=== PATIENT | female | born 1950 | race Caucasian/White ===

== ENCOUNTER 2016-02-22 10:11 | Emergency (ER) | payer MEDICARE, OTHER ==
[2016-02-22 11:18] LABS: Hematocrit 45.3 % (37.0-47.0); Hemoglobin 16.3 gm/dL (12.5-16.0); Mean Cell Volume 85.6 fl (78-100); Mean Corpuscular Hemoglobin 30.8 pg (27-31); Mean Platelet Volume 9.2 fl (6.0-9.5); Neutrophil # 5.3 K/mm3 (1.3-6.0); Neutrophil % 70.4 % (42-75.0); Platelet Count 235 K/mm3 (150-450); Red Blood Count 5.29 M/mm3 (4.2-5.4); Red Cell Distribution Width 11.9 % (11.5-14.0); White Blood Count 7.6 K/mm3 (4.0-10.5)
[2016-02-22] MEDS ORDERED: MECLIZINE HCL 25 MG TABLET PO ONE (11:24)
[2016-02-22] MEDS ORDERED: NORMAL SALINE 1,000 ML IV ONE (11:24)
[2016-02-22 11:32] LABS: Albumin * 3.9 gm/dl (3.4-5.0); Anion Gap 10.8 mmol/L (6.8-13.8); Bilirubin, Total 1.1 mg/dL (0.0-1.1); Calcium * 10.2 mg/dL (7.9-10.9); Carbon Dioxide 26.7 mmol/L (24-32.6); Potassium 3.5 mmol/L (3.4-4.6); Total Protein 7.5 gm/dL (6.2-8.2)
[2016-02-22] MEDS ORDERED: DIAZEPAM 5 MG/ML SYRG IV ONE (11:40)
[2016-02-22] MEDS ORDERED: ONDANSETRON HCL/PF 2 MG/ML VIAL IV ONE (11:41)
[2016-02-22] MEDS ORDERED: MECLIZINE HCL 25 MG TABLET ONE (12:12)
[2016-02-22] MEDS ORDERED: ONDANSETRON HCL/PF 2 MG/ML VIAL ONE (12:12)
[2016-02-22] MEDS ORDERED: DIAZEPAM 5 MG/ML SYRG ONE (12:12)
[2016-02-22 12:45] LABS: Urine Bilirubin Negative (NEGATIVE); Urine Blood Negative /ul (NEGATIVE); Urine Ketone Negative (NEGATIVE); Urine Nitrite Negative (NEGATIVE); Urine Protein Negative (NEGATIVE); Urine Specific Gravity 1.025 SP.GR. (1.005-1.010); Urine Urobilinogen Normal (NORMAL)
[2016-02-22 12:54] LABS: Urine Appearance Clear; Urine Bacteria 1+; Urine Color Yellow; Urine RBC 0-5 /hpf (0-5)
[2016-02-22] MEDS ORDERED: ACETAMINOPHEN 500 MG TABLET PO ONE (13:07)
[2016-02-22 13:17] VITALS: BP 153/79
[2016-02-22] MEDS ORDERED: CIPROFLOXACIN HCL 250 MG TABLET PO ONE (13:51)
--- NOTE | 2016-02-22 14:00 | ERNOTE ---
Dizziness ER Record Date of Service: 02/22/16 Presenting Symptoms: dizziness Time Seen by Provider: 02/22/16 11:29 Source: patient, RN notes reviewed Immunizations: IMMUNIZATION HX Immunizations Up to Date Yes Allergies/Adverse Reactions: Allergies Allergy/AdvReac Type Severity Reaction Status Date / Time No Known Allergies Allergy Verified 02/22/16 11:02 Home Medications: HOME MEDICATIONS Aspirin [Aspir 81] 81 mg PO DAILY 12/22/11 [Last Taken Unknown] Losartan/Hydrochlorothiazide [Losartan-Hctz 100-25 mg Tab] 1 each PO DAILY 12/21 [Last Taken Unknown] Acetaminophen [Tylenol] 650 mg PO QID PRN #0 tablet 12/23/11 [Last Taken Unknown ] Nitroglycerin [Nitrostat] 0 tab SL PRN PRN #0 btl 12/23/11 [Last Taken Unknown] Atorvastatin Calcium [Lipitor] 20 mg PO DAILY 02/22/16 [Last Taken Unknown] Meclizine HCl 25 mg PO TID PRN #14 tab.chew 02/22/16 [Last Taken Unknown] - History of Present Illness Narrative: Patient presents with dizziness sudden onset started yesterday. Worse with any type of movements. She is denying any headache today she did have a slight headache yesterday. Denies any abdominal pain chest pain. Is nauseous but no vomiting. Denies any weakness on one side or the other side. Denies any diarrhea. No fever Date (Duration): 02/21/16 Timing and Duration: sudden onset Noted on awakening:: No Severity: max: mild Severity: currently: mild Associated Symptoms: Absent: hearing loss, ringing/roaring in ear, ear pain, nausea, vomiting, headache, weakness, numbness, sweating, light headedness Sense of movement: Present: spinning Modifying Factors - (Worsens): Reports: changing position, movement of head, standing position Review of Systems - Review of Systems Constitutional: Absent: fever, weakness EYE: Absent: eye discharge Neurological: Present: dizziness/light-headedness. Absent: headache, seizure, weakness, numbness, tingling All Other Systems: All systems neg except as marked - Social History Alcohol Use: none Drug Use: none Physical Exam - Physical Exam General Appearance: Present: wd/wn, alert, no apparent distress Eye Exam: PERRL: bilateral, EOMI: bilateral Ears, Nose, Throat: Present: normal ENT inspection, hearing grossly normal, normal pharynx Neck: Present: normal inspection, nontender Respiratory: Present: no respiratory distress, normal breath sounds, chest nontender, lungs clear Cardiovascular/Chest: Present: regular rate, rhythm, no murmur, normal peripheral pulses Gastrointestinal/Abdominal: Present: normal bowel sounds, nontender, nondistended, soft, no organomegaly Neurological Exam: Present: alert, oriented, normal mood/affect, no motor/ sensory deficits, machine printer II-XII nml as tested. Absent: facial droop, motor weakness, disoriented to person, disoriented to time, disoriented to place Skin Exam: Present: normal color, warm/dry Lymphatic Exam: Present: no adenopathy ED Progress - Results and Orders Patient's Lab Results:: I have reviewed the patient's lab results. - Vital Signs Patient's Vital Signs:: I have reviewed the patient's vital signs. Vital Signs: Vital Signs 02/22/16 02/22/16 02/22/16 10:59 11:27 11:57 Temperature 35.1 C L Pulse Rate 70 56 L 54 L Respiratory 12 13 Rate Blood Pressure 144/88 160/75 148/74 O2 Sat by Pulse 95 93 Oximetry 02/22/16 02/22/16 02/22/16 11:58 12:07 12:47 Temperature Pulse Rate 55 L 56 L 55 L Respiratory 15 19 16 Rate Blood Pressure 148/74 151/82 162/81 O2 Sat by Pulse 92 92 92 Oximetry 02/22/16 13:16 Temperature Pulse Rate 56 L Respiratory 13 Rate Blood Pressure 153/79 O2 Sat by Pulse 92 Oximetry - EKG EKG: NSR, nonspecific ST T wave changes EKG read: Interp. by me - Progress/Reassessment Chief Complaint: Dizziness Progress:: Improved - Transfer of Care Expected Disposition: Discharge Additional Notes: Patient is feeling better desires to go home we'll put her on meclizine. She will take it easy when ambulating. Push plenty of fluids. Return back to the ER with any change or worsening symptoms. Follow up with her family doctor in 2-3 days. Warning signs and symptoms have been reviewed with the patient and her and return back to the ER with good understanding. Departure Clinical Impression: Vertigo - Departure Disposition: Home Follow Up Needed Instructions: Vertigo, [id number], Benign Positional Vertigo, Labyrinthitis Prescriptions: Meclizine HCl 25 mg PO TID PRN #14 tab.chew PRN Reason: Vertigo
[2016-02-22] MEDS ORDERED: CIPROFLOXACIN HCL 250 MG TABLET ONE (14:05)
== END 2016-02-22 14:18 | disposition home or self-care (01) ==
LOC: ER 10:11
DX: R42 Dizziness and giddiness (principal)

== ENCOUNTER 2016-06-14 06:52 | Day surgery (SDC) | payer MEDICARE, OTHER ==
[~2016-06-14 06:52] MED LIST: RINGERS SOLUTION,LACTATED 1,000 ML IV PRN
--- OUTSIDE RECORDS SUMMARY | 2016-06-14 06:56 | XMS REPORT | Continuity of Care Document ---
:1950 Author Organization [facility] ([facility]) [place] [address] Phone [phone] Care Team Providers Name Role Phone Provider, No-Primary Care Primary Care Provider Unavailable Source Comments This disclosure is being made pursuant to the Care Everywhere program, applicable federal and state laws, and may not contain all informaitonavailable regarding this patient.[facility] ([facility]) Active Allergies and Adverse Reactions No Known Allergies Current Medications Prescription Sig. Disp. Refills Start Date End Date Status aspirin, buffered Take 81 mg by 01/25/2012 Active 81 mg tablet mouth daily atorvastatin 20 mg Take 1 tablet 90 tablet 2 09/02/2015 Active tablet (20 mg total) by mouth every evening. LOSARTAN-HYDROCHLOR TAKE 1 TABLET 90 tablet 1 05/31/2016 Active OTHIAZIDE 100-25 mg EVERY DAY per tablet losartan-hydrochlor Take 1 tablet 90 tablet 2 09/02/2015 05/31/2016 Discontinued othiazide 100-25 mg by mouth per tablet daily. Active Problems Problem Noted Date Coronary artery disease Overview: Formatting of this note may be different from the original. CARDIOVASCULAR PROCEDURES ECHO/MUGA: Echo (Left ventricular systolic function is normal. The left ventricular wall motion is normal. There is moderate mitral regurgitation. ) - 12/18/2009 Echo:Echo (Left ventricular systolic function is normal. The left ventricular wall motion is normal. There is moderate mitral regurgitation. ) - 01/12/2011 Echo:Echo (Left ventricular systolic function is normal. The left ventricular wall motion is normal. There is mild to moderate mitral regurgitation. ) - 08/07/2013 STRESS TESTS: MPI (EF.60, Normal LV size, systolic function, and wall motion--EF 60%. There is a moderate size and severity fixed posterior-lateral defect that likely represents a prior OK. No ischemia.) - 12/18/2009 MPI (Normal EF, No ischemia) - 12/23/2011 VASCULAR: Carotid Duplex (Antegrade flow is noted in the right vertebral artery The Doppler flow velocities within the right internal carotid artery are within normal limits, less than 50% stenosis. The Doppler flow velocities within the left internal carotid artery are within normal limits, less than 50% stenosis. Antegrade flow is noted in the left vertebral artery ) - 12/18/2009 Old myocardial infarction Hypertension Hyperlipemia Overview: Formatting of this note may be different from the original. LIPID HISTORY: Results Date Total Cholesterol Triglycerides HDL LDL 02/21/2013 160 221 38.00 78.00 08/15/2012 188 173 43.00 110.00 07/20/2010 160 103 54.00 85.00 09/12/2009 217 140 51.00 138.00 Palpitation Mitral regurgitation Overview: Most Recent Encounters Date Type Specialty Providers Description 05/31/2016 Refill Cardiac Rehabilitation Yvette An MD Dx: HTN ( hypertension) (Primary Dx) Social History Tobacco Use Types Packs/Day Years Used Date Never Smoker Last Filed Vital Signs Vital Sign Reading Time Taken Blood Pressure 124/80 09/16/2015 2:13 PM CDT Pulse 78 09/16/2015 2:13 PM CDT Temperature - - Respiratory Rate - - Height 1.651 m (5' 5") 09/16/2015 2:13 PM CDT Weight 86.183 kg (190 lb) 09/16/2015 2:13 PM CDT Body Mass Index 31.62 09/16/2015 2:13 PM CDT Oxygen Saturation - - Plan of Care Date Type Specialty Providers Description 09/23/2016 Appointment Heart and Vascular Yvette An MD Chief Comp: Patient [address] [place] [address] Visit [phone] (Fax) Health Maintenance Due Date Last Done Comments HCV Screening 1950 Hepatitis B Vaccine (1 of 3 - Primary Series) 1950 Tdap Vaccine 1961 Lipid Disorder Screening 1968 Td Vaccine 1968 Cervical Cancer Screening 1980 Mammogram 1990 Colonoscopy 07/29/2000 Zoster Vaccine 2010 Osteoporosis Screening (DXA Bone Density) 07/31/2015 Pneumococcal Vaccine (1 of 2 - PCV13) 07/31/2015 Influenza Vaccine: Seasonal (Season Ended) 2016 Results from Last 3 Months Not on file
[2016-06-14] MEDS ORDERED: RINGERS SOLUTION,LACTATED 1,000 ML IV ONE (07:15)
[2016-06-14] MEDS ORDERED: RINGERS SOLUTION,LACTATED 1,000 ML IV PRN (09:37)
[2016-06-14 10:33] VITALS: BP 127/62
--- NOTE | 2016-06-14 17:59 | OR ---
Operative Report - Dictated Report Narrative: OPERATIVE REPORT DATE OF OPERATION: 06/14/2016 PREOPERATIVE DIAGNOSIS: No recent dedicated colon studies. Family history of colon cancer POSTOPERATIVE DIAGNOSIS: Diverticulosis, otherwise normal colonoscopy OPERATION: Colonoscopy SURGEON: Sherry Thompson MD ANESTHESIA: RASHEEDA Edge CRNA INDICATIONS FOR PROCEDURE: The patient is a 65-year-old female referred by Dr. Ramirez. The patient had a normal colonoscopy in 2004. Her mother had colon cancer in her late 50s. The patient is currently asymptomatic FINDINGS: Capacious redundant colon with significant diverticulosis otherwise normal exam to the cecum. NARRATIVE OF PROCEDURE: The patient was identified in the holding area, and prior to the administration of anesthetic, a multidisciplinary timeout was observed. With the patient in the left lateral position and after the administration of intravenous sedation, the perineum was inspected. There was no evidence of pilonidal disease or skin breakdown. The external appearance of the anus was normal. Sphincter tone was good. The flexible fiberoptic colonoscope was inserted into the rectum which was insufflated with air. The rectal mucosa and submucosal vascular pattern appeared normal, the prep was seen to be complete. The scope was advanced through the sigmoid colon, which contained numerous large noninflamed diverticular openings some of which were impacted with stool. The scope was advanced up the descending colon, and around the splenic flexure where the triangular haustral architecture of the transverse colon was seen. The scope was advanced across the transverse colon, around the hepatic flexure to the cecum, where the confluence of tenia and the ileocecal valve were identified. The mucosa at this level appeared normal. The scope was then slowly withdrawn in a circular fashion so that all aspects of colonic mucosa were inspected. The colon was capacious in character and redundant in course. The haustral architecture appeared well preserved throughout with no evidence of external compression. The mucosa and submucosal vascular pattern appeared normal, specifically there was no gross evidence to suggest colitis or inflammatory bowel disease and no AV malformations were seen. No polyps were encountered. The scope was gradually withdrawn to the level of the rectum. As much insufflated air as possible was removed. The scope was withdrawn from the patient and the procedure terminated. The patient tolerated the anesthetic and procedure well without complication and was transferred back to the ambulatory surgery area awake and in stable condition. The patient remained stable throughout a period of postoperative observation. She denied abdominal discomfort, was able to tolerate by mouth intake, and was up without assistance. I shared the operative findings with the patient and she was given copies of the photographs which appear in the medical record. She was discharged home with instructions not to engage in hazardous activity today , but may resume normal activity tomorrow, and advance diet as tolerated. She is to continue those medications as listed in the history and physical exam. A pamphlet on diverticular disease was reviewed with her and given to her. A trial of Benefiber or equivalent was suggested. RECOMMENDATION: Colon surveillance in 5-10 years depending upon findings or symptoms Reviewed and electronically signed
== END 2016-06-14 06:53 | disposition home or self-care (01) ==
LOC: AMB 06:52
PROVIDERS: ATTEND Surgery
PROC: 0DJD8ZZ Inspection of Lower Intestinal Tract, Via Natural or Artificial Opening Endoscopic (ICD-10-PCS; principal; 2016-06-14 07:50)
DX: Z12.11 Encounter for screening for malignant neoplasm of colon (principal); K57.30 Diverticulosis of large intestine without perforation or abscess without bleeding; I10 Essential (primary) hypertension; E78.5 Hyperlipidemia, unspecified; I25.10 Atherosclerotic heart disease of native coronary artery without angina pectoris; Z68.33 Body mass index [BMI] 33.0-33.9, adult; Z80.0 Family history of malignant neoplasm of digestive organs

== ENCOUNTER 2016-12-20 07:22 | Emergency (ER) | payer MEDICARE, OTHER ==
[2016-12-20 07:53] LABS: Hematocrit 43.1 % (37.0-47.0); Hemoglobin 15.5 gm/dL (12.5-16.0); Mean Cell Volume 87.6 fl (78-100); Mean Corpuscular Hemoglobin 31.5 pg (27-31); Mean Platelet Volume 9.4 fl (6.0-9.5); Neutrophil # 3.2 K/mm3 (1.3-6.0); Neutrophil % 54.3 % (42-75.0); Platelet Count 239 K/mm3 (150-450); Red Blood Count 4.92 M/mm3 (4.2-5.4); Red Cell Distribution Width 12.2 % (11.5-14.0); White Blood Count 5.9 K/mm3 (4.0-10.5)
[2016-12-20 08:11] LABS: Albumin * 3.8 gm/dl (3.4-5.0); Anion Gap 11.8 mmol/L (6.8-13.8); BUN/Creatinine Ratio 21.6 (9.0-21.6); Bilirubin, Total 0.7 mg/dL (0.0-1.1); Ca. Corrected For Albumin 9.2 mg/dL (8.4-10.2); Calcium * 9.4 mg/dL (7.9-10.9); Carbon Dioxide 27.8 mmol/L (24-32.6); Potassium 3.6 mmol/L (3.4-4.6); Total Protein 6.9 gm/dL (6.2-8.2); Troponin I 0.068 ng/ml (0.00-0.10)
[2016-12-20 08:38] VITALS: BP 128/51
--- NOTE | 2016-12-20 08:50 | ERNOTE ---
Chest Pain/Cardiac HPI Chief Complaint: General Assessment Time Seen by Provider: 12/20/16 08:20 Source: patient, family Exam Limitations: no limitations Immunizations: IMMUNIZATION HX Immunizations Up to Date Yes Allergies/Adverse Reactions: Allergies No Known Allergies Allergy (Verified 12/20/16 07:39) Home Medications: HOME MEDICATIONS Aspirin [Aspir 81] 81 mg PO DAILY 12/22/11 [Last Taken Unknown] Losartan/Hydrochlorothiazide [Losartan-Hctz 100-25 mg Tab] 1 each PO DAILY 12/21 [Last Taken 06/13/16] Atorvastatin Calcium [Lipitor] 20 mg PO DAILY 02/22/16 [Last Taken Unknown] Narrative: Patient was sleeping when she woke up with a severe burning sensation in her left chest and felt that her heart was pounding out of her chest ( not sure about heart rate). The burning subsided but the pounding lasted for at least two hours till she fell asleep. She has had not symptoms since. She had a remote heart attack 25 years ago and is being followed by Dr An. She is not aware of a history of atrial fibrillation but recently wore a Holter monitor for 24 hours. She never had symptoms like last night before. Unusual for her was that during that episode she had to go to urinate three times Date (Duration): 12/19/16 Time (Timing): 23:30 Timing: resolved prior to arrival Severity/Quality: severe, burning Location: left chest Chest Pain Radiation: neck Activities at Onset: sleep Modifying Factors - Improves: Present: position - sitting up Modifying Factors - Worsens: Present: nothing Nitro Today/Relief: no nitro taken today Aspirin Treatment Today: 81 mg x 1, provided at home Associated Symptoms: Absent: headache, dizziness, palpitations, nausea, vomiting Prior Chest Pain/Cardiac Workup: Reports: heart attack Prior Treatment: Reports: recently seen. Denies: currently on antibiotics Review of Systems - Review of Systems Constitutional: Absent: recent illness, fever EYE: Absent: vision changes ENT: Absent: nose congestion, sore throat Respiratory: Absent: shortness of breath, cough Cardiology: Present: See HPI, chest pain, palpitations Gastrointestinal/Abdominal: Absent: nausea, vomiting, abdominal pain Genitourinary: Present: See HPI Musculoskeletal: Absent: neck pain Neurological: Absent: headache, weakness, numbness - Patient's Past Medical History Patient History - Medical: Other Patient History - Cardiac/Respiratory: Coronary Heart Disease, Hypertension, Hyperlipidemia, Myocardial Infarction Patient History - Cancer: No Hx of Cancer Patient History - Surgical Procedures: Colonoscopy, , D & C Patient History - Other: None - Family History Mother Family History - Medical: , Renal Failure Family History - Cardiac/Respiratory: CHF Family History - Cancer: Colon Father Family History - Medical: Other Family History - Cardiac/Respiratory: No pertinent hx Family History - Cancer: No pertinent family hx - Social History Abuse History: No History of abuse Psych History: No pertinent hx Smoking Status: Never smoker Have you smoked in the past 12 months: No - Immunizations Immunizations Up to Date: Yes Physical Exam - Physical Exam General Appearance: Present: wd/wn, alert, no apparent distress Ears, Nose, Throat: Present: normal ENT inspection, normal pharynx Respiratory: Present: no respiratory distress, normal breath sounds, no accessory muscle use, chest nontender, lungs clear Cardiovascular/Chest: Present: regular rate, rhythm, no murmur Gastrointestinal/Abdominal: Present: normal bowel sounds, nontender, nondistended Extremity Exam: Present: no edema Neurological Exam: Present: alert, oriented, normal mood/affect Skin Exam: Present: normal color, warm/dry ED Progress - Results and Orders Patient's Lab Results:: I have reviewed the patient's lab results. - Vital Signs Patient's Vital Signs:: I have reviewed the patient's vital signs. Vital Signs: Vital Signs 12/20/16 12/20/16 12/20/16 07:22 07:42 07:57 Temperature 36.5 C Pulse Rate 75 71 67 Respiratory 13 16 11 L Rate Blood Pressure 147/84 121/77 O2 Sat by Pulse 98 95 94 Oximetry 12/20/16 08:20 Temperature Pulse Rate 75 Respiratory 13 Rate Blood Pressure 128/51 O2 Sat by Pulse 96 Oximetry - EKG EKG: NSR, unchanged from - 02/22/2016, other - PVCs EKG read: Interp. by me - X-Ray X-Ray #1 X-Ray: chest - no acute changes, possible atelectasis Interpretation: Reviewed by me - Progress/Reassessment Chief Complaint: General Assessment Progress Note-Subjective: 12/20/16 08:47 discussed limitation of test to rule out CAD, symptoms sound like possibly an episode of atrial fibrillation Departure Clinical Impression: Palpitations Chest pain Qualifiers: Chest pain type: unspecified Qualified Code(s): R07.9 - Chest pain, unspecified - Departure Disposition: Home self-care Condition: Good Instructions: Chest Pain Observation, Palpitations, [id number] Additional Instructions: take your medications including your aspirin as prescribed, call Dr An for follow up and further testing, if you have another episode see your doctor or return to the ER right away Referrals: Brittany Ramirez DO [Primary Care Provider] - Yvette An MD [Associate] -
== END 2016-12-20 08:49 | disposition home or self-care (01) ==
LOC: ER 07:22
DX: R00.2 Palpitations (principal); R07.9 Chest pain, unspecified; I25.2 Old myocardial infarction; I10 Essential (primary) hypertension; E78.5 Hyperlipidemia, unspecified